=== PATIENT | male | born 1960 | race African-American/Black ===

== ENCOUNTER 2017-09-24 09:16 | Emergency (ER) | payer OTHER ==
[2017-09-24] MEDS: IBUPROFEN 600 MG TAB PO (10:34)
== END 2017-09-24 12:07 | disposition home or self-care (01) ==
LOC: FTE 09:16
DX: S92.355A Nondisplaced fracture of fifth metatarsal bone, left foot, initial encounter for closed fracture (principal); J44.9 Chronic obstructive pulmonary disease, unspecified; X58.XXXA Exposure to other specified factors, initial encounter; Y92.9 Unspecified place or not applicable
CPT/HCPCS: 29515; 73630-LT; 99283-25

== ENCOUNTER 2018-05-02 21:21 | Inpatient (IN) | payer BC, OTHER ==
[2018-05-02 21:59] LABS: ADD MAN DIFF? NO
[2018-05-02 22:00] LABS: WHITE BLOOD COUNT 5.4 10^3/ul (4.8-10.8)
[2018-05-02 22:00] LABS: BASOPHIL # 0.1 10^3/ul (0.0-0.1); BASOPHILS % 1.3 % (0.0-2.0); EOSINOPHILS # 0.1 10^3/ul (0.0-0.5); EOSINOPHILS % 2.4 % (0.0-7.0); HEMATOCRIT 59.6 % (42.0-52.0); HEMOGLOBIN 18.6 g/dl (14.0-18.0); LYMPHOCYTES # 1.9 10^3/ul (0.8-2.9); LYMPHOCYTES % 35.4 % (15.0-51.0); MEAN CORPUSCULAR HEMOGLOBIN 31.2 pg (29.0-33.0); MEAN CORPUSCULAR HGB CONC 31.2 g/dl (32.0-37.0); MEAN CORPUSCULAR VOLUME 99.8 fl (82.0-101.0); MEAN PLATELET VOLUME 10.6 fl (7.4-10.4); MONOCYTE # 0.7 10^3/ul (0.3-0.9); MONOCYTES % 13.4 % (0.0-11.0); NEUTROPHIL # 2.5 10^3/ul (1.6-7.5); NEUTROPHILS % 47.1 % (39.0-77.0); NUCLEATED RED BLOOD CELLS% 0.4 /100WBC (0.0-0.0); PLATELET COUNT 156 10^3/UL (140-415); RED BLOOD COUNT 5.97 10^6/ul (4.70-6.10); RED CELL DISTRIBUTION WIDTH 14.9 % (11.5-14.5)
[2018-05-02] MEDS: SOD CHLORIDE 0.9% 500 ML IV (22:15)
[2018-05-02] MEDS: METHYLPREDNISOLONE 125 MG INJ IV (22:15)
[2018-05-02 22:16] LABS: ALANINE AMINOTRANSFERASE 53 IU/L (13-69); ALBUMIN 2.9 g/dl (3.3-4.9); ALBUMIN/GLOBULIN RATIO 0.96; ALKALINE PHOSPHATASE 52 IU/L (42-121); ANION GAP 8 (8-16); ASPARTATE AMINO TRANSFERASE 37 IU/L (15-46); BILIRUBIN,INDIRECT 0.8 mg/dl (0-1.1); BILIRUBIN,TOTAL 0.8 mg/dl (0.2-1.3); BLOOD UREA NITROGEN 18 mg/dl (7-20); CALCIUM 8.8 mg/dl (8.4-10.2); CARBON DIOXIDE 39 mmol/L (21-31); CHLORIDE 99 mmol/L (97-110); CREATININE 1.08 mg/dl (0.61-1.24); GLUCOSE 138 mg/dl (70-220); SODIUM 142 mmol/L (135-144); TOTAL PROTEIN 5.9 g/dl (6.1-8.1)
[2018-05-02 22:18] LABS: AADO2 Arterial 39.1 mmHg (7.0-24.0); Allen Test ACCEPTAB; Arterial Base Excess 6.8 mmol/L (-3.0-3); Arterial Blood Gas Oxygen Sat 90.5 mmHG (95.0-98.0); Arterial COHb 9.4 % (0.0-3.0); Arterial Fraction of Oxyhgb 81.7 % (93.0-99.0); Arterial HCO3 39.9 mmol/L (22.0-26.0); Arterial MetHb 0.3 % (0.0-1.5); Arterial Total Hemglobin 19.7 g/dl (12.0-18.0); Arterial pCO2 95.2 mmhg (35-45); MODE NASAL CANNULA; Site Right Radial
[2018-05-02 22:26] LABS: TROPONIN-I 0.023 ng/ml (0.000-0.120)
[2018-05-02] MEDS: ALBUTEROL 0.5% (NEB) 2.5 MG/0.5 ML AMP INH (22:43)
[2018-05-02] MEDS: IPRATROPIUM (NEB) 0.5 MG/2.5 ML AMP INH (22:44)
[2018-05-02] MEDS: FUROSEMIDE 40 MG INJ IV (22:51)
[2018-05-02] MEDS: ENALAPRILAT 1.25 MG INJ IV (23:16)
[2018-05-03 00:04] LABS: B-TYPE NATRIURETIC PEPTIDE 208 PG/ML (0-125)
[2018-05-03 03:00] LABS: AADO2 Arterial 105.4 mmHg (7.0-24.0); Allen Test ACCEPTAB; Arterial Base Excess 6.7 mmol/L (-3.0-3); Arterial Blood Gas Oxygen Sat 96.6 mmHG (95.0-98.0); Arterial COHb 7.5 % (0.0-3.0); Arterial Fraction of Oxyhgb 88.9 % (93.0-99.0); Arterial HCO3 44.7 mmol/L (22.0-26.0); Arterial MetHb 0.5 % (0.0-1.5); Arterial Total Hemglobin 21.4 g/dl (12.0-18.0); Arterial pCO2 137.9 mmhg (35-45); Blood Gas PS 15; MODE MASK - BIPAP; Site Right Radial
[2018-05-03] MEDS ORDERED: PROPOFOL 100 ML (03:33)
[2018-05-03] MEDS ORDERED: IPRATROPIUM (HFA) 12.9 GM INHALER INH (04:00)
[2018-05-03] MEDS ORDERED: ALBUTEROL HFA 8 GM INHALER INH (04:00)
[2018-05-03] MEDS ORDERED: PROPOFOL 100 ML IV ×2 (04:00)
[2018-05-03] MEDS ORDERED: MIDAZOLAM (DRIP) 50 mg/50 mL 50 ML IV ×2 (04:00→04:08)
[2018-05-03] MEDS ORDERED: ACETAMINOPHEN 650MG/20.3ML CUP PO (04:00)
[2018-05-03] MEDS ORDERED: FENTAnyl (DRIP) 1000 mcg/100mL 100 ML IV (04:00)
[2018-05-03] MEDS ORDERED: ONDANSETRON 4 MG INJ IV (04:00)
[2018-05-03] MEDS: PROPOFOL 100 ML IV ×3 (04:19→08:22)
[2018-05-03] MEDS: MIDAZOLAM (DRIP) 50 mg/50 mL 50 ML IV ×3 (04:24→19:47)
[2018-05-03] MEDS: FENTAnyl (DRIP) 1000 mcg/100mL 100 ML IV ×2 (04:24→23:26)
[2018-05-03 05:23] LABS: ADD MAN DIFF? NO
[2018-05-03] MEDS: FUROSEMIDE 20 MG INJ IV ×2 (05:26→17:55)
[2018-05-03 05:27] LABS: WHITE BLOOD COUNT 4.5 10^3/ul (4.8-10.8)
[2018-05-03 05:27] LABS: ABNORMAL IP MESSAGE 1; BASOPHILS % 0.9 % (0.0-2.0); HEMATOCRIT 61.7 % (42.0-52.0); HEMOGLOBIN 18.9 g/dl (14.0-18.0); LYMPHOCYTES # 0.3 10^3/ul (0.8-2.9); LYMPHOCYTES % 7.5 % (15.0-51.0); MEAN CORPUSCULAR HEMOGLOBIN 30.9 pg (29.0-33.0); MEAN CORPUSCULAR HGB CONC 30.6 g/dl (32.0-37.0); MEAN PLATELET VOLUME 10.6 fl (7.4-10.4); MONOCYTES % 0.9 % (0.0-11.0); NEUTROPHIL # 4.1 10^3/ul (1.6-7.5); NEUTROPHILS % 90.5 % (39.0-77.0); NUCLEATED RED BLOOD CELLS% 0.4 /100WBC (0.0-0.0); PLATELET COUNT 145 10^3/UL (140-415); POSITIVE DIFF @See below; RED BLOOD COUNT 6.11 10^6/ul (4.70-6.10)
[2018-05-03 05:45] LABS: AADO2 Arterial 311.3 mmHg (7.0-24.0); Arterial Base Excess 8.9 mmol/L (-3.0-3); Arterial Blood Gas Oxygen Sat 94.7 mmHG (95.0-98.0); Arterial COHb 5.4 % (0.0-3.0); Arterial Fraction of Oxyhgb 89.3 % (93.0-99.0); Arterial HCO3 34.2 mmol/L (22.0-26.0); Arterial MetHb 0.3 % (0.0-1.5); Arterial Total Hemglobin 20.6 g/dl (12.0-18.0); Arterial pCO2 46.5 mmhg (35-45); MODE VENT - AC; Site Right Brachial
[2018-05-03 05:47] LABS: HEMOGLOBIN A1C 6.3 % (0-5.9)
[2018-05-03 05:53] LABS: ALANINE AMINOTRANSFERASE 46 IU/L (13-69); ALBUMIN 3.5 g/dl (3.3-4.9); ALBUMIN/GLOBULIN RATIO 1.16; ALKALINE PHOSPHATASE 48 IU/L (42-121); ASPARTATE AMINO TRANSFERASE 40 IU/L (15-46); BILIRUBIN,INDIRECT 0.9 mg/dl (0-1.1); BILIRUBIN,TOTAL 0.9 mg/dl (0.2-1.3); BLOOD UREA NITROGEN 18 mg/dl (7-20); CHLORIDE 99 mmol/L (97-110); CREATININE 1.13 mg/dl (0.61-1.24); GLUCOSE 157 mg/dl (70-220); POTASSIUM 5.5 mmol/L (3.5-5.1); SODIUM 143 mmol/L (135-144); TOTAL PROTEIN 6.5 g/dl (6.1-8.1)
[2018-05-03 05:59] LABS: ANION GAP 11 (8-16)
[2018-05-03 06:06] LABS: CARBON DIOXIDE 39 mmol/L (21-31)
[2018-05-03] MEDS ORDERED: SUCCINYLCHOLINE CHLORIDE 100 MG/5 ML SYG IV (07:00)
[2018-05-03] MEDS ORDERED: ETOMIDATE 20 MG INJ (07:00)
[2018-05-03] MEDS: LEVOFLOXACIN 500MG/D5W (PMX) 100 ML IVPB (08:22)
[2018-05-03 08:24] LABS: ANISOCYTOSIS 1+ (0-0); BAND NEUTROPHILS % (M) 23 % (0-4); ERYTHROBLAST% (NRBC) (M) 1 % (0-0); GIANT THROMBO% (M) 1 % (0-0); LYMPHOCYTES % (M) 2 % (15-51); MONOCYTES % (M) 1 % (0-11); PLATELET ESTIMATE NORMAL; POIKILOCYTOSIS 1+ (0-0); POLYCHROMASIA 2+ (0-0); REACTIVE LYMPHOCYTES% (M) 2 % (0-0); SEG NEUT #M 3.3 10^3/ul (1.6-7.5); SEGMENTED NEUTROPHILS (M) % 72 % (39-77); SMUDGE%M 11 % (0-0); SPHEROCYTES 2+ (0-0)
[2018-05-03] MEDS: METHYLPREDNISOLONE 125 MG INJ IV (08:25)
[2018-05-03] MEDS: ENOXAPARIN 40 MG/0.4 ML SYG SC (08:25)
[2018-05-03] MEDS: FAMOTIDINE 20 MG INJ IV ×2 (08:26→21:02)
[2018-05-03 08:48] LABS: CREATINE KINASE 72 IU/L (23-200)
[2018-05-03 09:07] LABS: CK INDEX 1.8; CK-MB 1.33 ng/ml (0.0-2.4); TROPONIN-I 0.013 ng/ml (0.000-0.120)
[2018-05-03] MEDS: FUROSEMIDE 40 MG INJ IV (10:10)
[2018-05-03 14:27] LABS: CREATINE KINASE 60 IU/L (23-200)
[2018-05-03 14:37] LABS: CK INDEX 1.4
[2018-05-03 14:46] LABS: CK-MB 0.84 ng/ml (0.0-2.4); TROPONIN-I < 0.012 ng/ml (0.000-0.120)
[2018-05-03] MEDS ORDERED: GLUCOSE GEL 15 GRAM TUBE PO ×2 (15:30)
[2018-05-03] MEDS ORDERED: GLUCOSE GEL 15 GRAM TUBE BUCCAL (15:30)
[2018-05-03] MEDS ORDERED: DEXTROSE 50% 50 ML SYRINGE IV ×2 (15:30)
[2018-05-03] MEDS ORDERED: GLUCAGON 1 MG INJ IM (15:30)
[2018-05-03] MEDS: INSULIN ASPART [NOVOLOG] 3 ML PEN SC ×2 (17:00→21:00)
[2018-05-03 19:36] LABS: ANION GAP 11 (8-16); BLOOD UREA NITROGEN 20 mg/dl (7-20); CALCIUM 8.6 mg/dl (8.4-10.2); CARBON DIOXIDE 31 mmol/L (21-31); CHLORIDE 100 mmol/L (97-110); CREATININE 0.85 mg/dl (0.61-1.24); GLUCOSE 137 mg/dl (70-220); POTASSIUM 4.1 mmol/L (3.5-5.1); SODIUM 138 mmol/L (135-144)
[2018-05-04 00:08] LABS: ADD UMIC YES; UR ASCORBIC ACID NEGATIVE (NEGATIVE); UR BACTERIA FEW /HPF (NONE SEEN); UR BILIRUBIN (Dip) NEGATIVE (NEGATIVE); UR BLOOD (Dip) 1+ mg/dL (NEGATIVE); UR CLARITY TURBID (CLEAR); UR COLOR YELLOW (YELLOW); UR GLUCOSE (Dip) NEGATIVE (NEGATIVE); UR KETONES (Dip) NEGATIVE (NEGATIVE); UR LEUKOCYTE ESTERASE (Dip) NEGATIVE Leu/ul (NEGATIVE); UR MUCUS FEW /HPF (NONE SEEN); UR NITRITE (Dip) NEGATIVE (NEGATIVE); UR RBC 25 /HPF (0-5); UR SPECIFIC GRAVITY (Dip) 1.021 (1.003-1.030); UR TOTAL PROTEIN (Dip) NEGATIVE (NEGATIVE); UR UROBILINOGEN (Dip) 1+ mg/dL (NEGATIVE); UR WBC 53 /HPF (0-5)
[2018-05-04] MEDS: INSULIN ASPART [NOVOLOG] 3 ML PEN SC ×5 (01:00→18:00)
[2018-05-04] MEDS ORDERED: ACCU-CHEK XX (02:00)
[2018-05-04 05:16] LABS: ADD MAN DIFF? NO
[2018-05-04 05:21] LABS: BASOPHILS % 0.1 % (0.0-2.0); EOSINOPHILS % 0.3 % (0.0-7.0); HEMATOCRIT 60.4 % (42.0-52.0); HEMOGLOBIN 19.5 g/dl (14.0-18.0); LYMPHOCYTES # 1.8 10^3/ul (0.8-2.9); LYMPHOCYTES % 22.4 % (15.0-51.0); MEAN CORPUSCULAR HEMOGLOBIN 30.5 pg (29.0-33.0); MEAN CORPUSCULAR HGB CONC 32.3 g/dl (32.0-37.0); MEAN CORPUSCULAR VOLUME 94.5 fl (82.0-101.0); MEAN PLATELET VOLUME 10.6 fl (7.4-10.4); MONOCYTE # 0.8 10^3/ul (0.3-0.9); MONOCYTES % 10.5 % (0.0-11.0); NEUTROPHIL # 5.3 10^3/ul (1.6-7.5); NEUTROPHILS % 66.4 % (39.0-77.0); PLATELET COUNT 131 10^3/UL (140-415); RED BLOOD COUNT 6.39 10^6/ul (4.70-6.10)
[2018-05-04] MEDS: FUROSEMIDE 20 MG INJ IV ×2 (05:45→18:45)
[2018-05-04] MEDS: MIDAZOLAM (DRIP) 50 mg/50 mL 50 ML IV (05:45)
[2018-05-04 06:00] LABS: ANION GAP 10 (8-16); BLOOD UREA NITROGEN 22 mg/dl (7-20); CALCIUM 8.7 mg/dl (8.4-10.2); CARBON DIOXIDE 35 mmol/L (21-31); CHLORIDE 100 mmol/L (97-110); CREATININE 0.91 mg/dl (0.61-1.24); GLUCOSE 131 mg/dl (70-220); MAGNESIUM 2.2 mg/dl (1.7-2.5); PHOSPHORUS 2.9 mg/dl (2.5-4.9); POTASSIUM 3.2 mmol/L (3.5-5.1); SODIUM 142 mmol/L (135-144)
[2018-05-04] MEDS: FAMOTIDINE 20 MG INJ IV ×2 (08:45→20:52)
[2018-05-04] MEDS: LEVOFLOXACIN 500MG/D5W (PMX) 100 ML IVPB (08:45)
[2018-05-04] MEDS: METHYLPREDNISOLONE 125 MG INJ IV (08:45)
[2018-05-04] MEDS: ENOXAPARIN 40 MG/0.4 ML SYG SC (08:48)
[2018-05-04 10:24] LABS: Arterial Blood Gas Oxygen Sat 96.5 mmHG (95.0-98.0); Arterial COHb 0.2 % (0.0-3.0); Arterial Fraction of Oxyhgb 95.8 % (93.0-99.0); Arterial HCO3 35.4 mmol/L (22.0-26.0); Arterial MetHb 0.5 % (0.0-1.5); Arterial Total Hemglobin 21.6 g/dl (12.0-18.0); Arterial pCO2 60.2 mmhg (35-45); Blood Gas PS 10; MODE VENT - CPAP; Site Right Brachial
[2018-05-04] MEDS: POTASSIUM CHLORIDE 50 ML IVPB ×3 (11:38→14:45)
[2018-05-04 13:44] LABS: AADO2 Arterial 78.6 mmHg (7.0-24.0); Arterial Base Excess 7.1 mmol/L (-3.0-3); Arterial Blood Gas Oxygen Sat 93.5 mmHG (95.0-98.0); Arterial COHb 0.4 % (0.0-3.0); Arterial Fraction of Oxyhgb 92.7 % (93.0-99.0); Arterial HCO3 34.9 mmol/L (22.0-26.0); Arterial MetHb 0.5 % (0.0-1.5); Arterial Total Hemglobin 22.1 g/dl (12.0-18.0); Arterial pCO2 56.8 mmhg (35-45); Blood Gas PS 10; MODE VENT - CPAP; Site Right Brachial
[2018-05-04] MEDS: PROPOFOL 100 ML IV (16:00)
[2018-05-05] MEDS: ACCU-CHEK XX (01:43)
[2018-05-05] MEDS: PROPOFOL 100 ML IV (04:00)
[2018-05-05] MEDS: FUROSEMIDE 20 MG INJ IV ×2 (05:15→18:13)
[2018-05-05 05:54] LABS: ADD MAN DIFF? NO
[2018-05-05 06:07] LABS: BASOPHILS % 0.3 % (0.0-2.0); EOSINOPHILS % 0.1 % (0.0-7.0); HEMATOCRIT 65.5 % (42.0-52.0); HEMOGLOBIN 20.3 g/dl (14.0-18.0); LYMPHOCYTES # 1.9 10^3/ul (0.8-2.9); LYMPHOCYTES % 24.5 % (15.0-51.0); MEAN CORPUSCULAR HEMOGLOBIN 30.7 pg (29.0-33.0); MEAN CORPUSCULAR VOLUME 98.9 fl (82.0-101.0); MEAN PLATELET VOLUME 10.7 fl (7.4-10.4); MONOCYTE # 0.9 10^3/ul (0.3-0.9); MONOCYTES % 11.5 % (0.0-11.0); NEUTROPHIL # 4.8 10^3/ul (1.6-7.5); NEUTROPHILS % 63.3 % (39.0-77.0); PLATELET COUNT 137 10^3/UL (140-415); RED BLOOD COUNT 6.62 10^6/ul (4.70-6.10)
[2018-05-05 06:07] LABS: WHITE BLOOD COUNT 7.6 10^3/ul (4.8-10.8)
[2018-05-05 06:44] LABS: BLOOD UREA NITROGEN 22 mg/dl (7-20); CALCIUM 9.1 mg/dl (8.4-10.2); CHLORIDE 98 mmol/L (97-110); CREATININE 1.05 mg/dl (0.61-1.24); GLUCOSE 99 mg/dl (70-220); MAGNESIUM 2.2 mg/dl (1.7-2.5); POTASSIUM 3.8 mmol/L (3.5-5.1); SODIUM 144 mmol/L (135-144)
[2018-05-05 06:50] LABS: ANION GAP 10 (8-16)
[2018-05-05 07:06] LABS: CARBON DIOXIDE 40 mmol/L (21-31)
[2018-05-05] MEDS: INSULIN ASPART [NOVOLOG] 3 ML PEN SC ×4 (08:00→21:00)
[2018-05-05] MEDS: METHYLPREDNISOLONE 125 MG INJ IV (09:16)
[2018-05-05] MEDS: ENOXAPARIN 40 MG/0.4 ML SYG SC (09:17)
[2018-05-05] MEDS: LEVOFLOXACIN 500MG/D5W (PMX) 100 ML IVPB (09:17)
[2018-05-05] MEDS: FAMOTIDINE 20 MG INJ IV (09:17)
[2018-05-05] MEDS: NICOTINE (14 MG/24 HR) PATCH TRANSDERM (15:41)
[2018-05-05] MEDS: FAMOTIDINE 20 MG TAB PO (21:29)
[2018-05-06] MEDS: ACCU-CHEK XX (01:42)
[2018-05-06] MEDS: hydrALAzine 20 MG INJ IV (02:49)
[2018-05-06] MEDS: FUROSEMIDE 20 MG INJ IV ×2 (05:27→17:20)
[2018-05-06] MEDS: LEVOFLOXACIN 500 MG TAB PO (05:29)
[2018-05-06 05:39] LABS: ADD MAN DIFF? NO
[2018-05-06 05:50] LABS: BASOPHILS % 0.3 % (0.0-2.0); EOSINOPHILS % 0.3 % (0.0-7.0); HEMATOCRIT 61.7 % (42.0-52.0); HEMOGLOBIN 19.8 g/dl (14.0-18.0); LYMPHOCYTES # 2.1 10^3/ul (0.8-2.9); MEAN CORPUSCULAR HEMOGLOBIN 30.8 pg (29.0-33.0); MEAN CORPUSCULAR HGB CONC 32.1 g/dl (32.0-37.0); MEAN CORPUSCULAR VOLUME 96.1 fl (82.0-101.0); MEAN PLATELET VOLUME 10.7 fl (7.4-10.4); MONOCYTE # 1.3 10^3/ul (0.3-0.9); MONOCYTES % 14.7 % (0.0-11.0); NEUTROPHIL # 5.3 10^3/ul (1.6-7.5); NEUTROPHILS % 60.4 % (39.0-77.0); PLATELET COUNT 132 10^3/UL (140-415); POSITIVE DIFF @See below; RED BLOOD COUNT 6.42 10^6/ul (4.70-6.10); RED CELL DISTRIBUTION WIDTH 15.6 % (11.5-14.5)
[2018-05-06 05:50] LABS: WHITE BLOOD COUNT 8.7 10^3/ul (4.8-10.8)
[2018-05-06 06:08] LABS: ANION GAP 9 (8-16); BLOOD UREA NITROGEN 20 mg/dl (7-20); CALCIUM 8.8 mg/dl (8.4-10.2); CARBON DIOXIDE 37 mmol/L (21-31); CHLORIDE 97 mmol/L (97-110); GLUCOSE 108 mg/dl (70-220); POTASSIUM 3.6 mmol/L (3.5-5.1); SODIUM 139 mmol/L (135-144)
[2018-05-06] MEDS: INSULIN ASPART [NOVOLOG] 3 ML PEN SC ×4 (07:50→20:19)
[2018-05-06] MEDS: METHYLPREDNISOLONE 125 MG INJ IV (08:37)
[2018-05-06] MEDS: FAMOTIDINE 20 MG TAB PO ×2 (08:37→20:19)
[2018-05-06] MEDS: NICOTINE (14 MG/24 HR) PATCH TRANSDERM (08:38)
[2018-05-06] MEDS: ENOXAPARIN 40 MG/0.4 ML SYG SC (08:48)
[2018-05-06] MEDS: ALBUTEROL/IPRATROPIUM (NEB) 3 ML AMP HHN ×2 (14:43→19:47)
[2018-05-06] MEDS: LORAZEPAM 2 MG INJ IV (21:31)
[2018-05-07] MEDS: ACCU-CHEK XX (02:00)
[2018-05-07] MEDS: LEVOFLOXACIN 500 MG TAB PO (05:46)
[2018-05-07] MEDS: FUROSEMIDE 20 MG INJ IV ×2 (05:47→18:00)
[2018-05-07 06:13] LABS: ADD MAN DIFF? NO
[2018-05-07 06:23] LABS: BASOPHILS % 0.2 % (0.0-2.0); EOSINOPHILS % 0.2 % (0.0-7.0); HEMATOCRIT 65.4 % (42.0-52.0); HEMOGLOBIN 20.7 g/dl (14.0-18.0); LYMPHOCYTES # 1.9 10^3/ul (0.8-2.9); LYMPHOCYTES % 21.2 % (15.0-51.0); MEAN CORPUSCULAR HEMOGLOBIN 30.8 pg (29.0-33.0); MEAN CORPUSCULAR HGB CONC 31.7 g/dl (32.0-37.0); MEAN CORPUSCULAR VOLUME 97.5 fl (82.0-101.0); MEAN PLATELET VOLUME 10.8 fl (7.4-10.4); MONOCYTE # 1.3 10^3/ul (0.3-0.9); MONOCYTES % 13.8 % (0.0-11.0); NEUTROPHIL # 5.8 10^3/ul (1.6-7.5); NEUTROPHILS % 64.2 % (39.0-77.0); PLATELET COUNT 133 10^3/UL (140-415); RED BLOOD COUNT 6.71 10^6/ul (4.70-6.10)
[2018-05-07 06:37] LABS: ANION GAP 10 (8-16); BLOOD UREA NITROGEN 20 mg/dl (7-20); CALCIUM 8.9 mg/dl (8.4-10.2); CARBON DIOXIDE 38 mmol/L (21-31); CHLORIDE 96 mmol/L (97-110); CREATININE 0.81 mg/dl (0.61-1.24); GLUCOSE 100 mg/dl (70-220); POTASSIUM 3.8 mmol/L (3.5-5.1); SODIUM 140 mmol/L (135-144)
[2018-05-07] MEDS: INSULIN ASPART [NOVOLOG] 3 ML PEN SC ×3 (07:52→17:13)
[2018-05-07] MEDS: FAMOTIDINE 20 MG TAB PO (08:22)
[2018-05-07] MEDS: NICOTINE (14 MG/24 HR) PATCH TRANSDERM (08:22)
[2018-05-07] MEDS: METHYLPREDNISOLONE 125 MG INJ IV (08:22)
[2018-05-07] MEDS: ENOXAPARIN 40 MG/0.4 ML SYG SC (08:27)
[2018-05-07] MEDS: ALBUTEROL/IPRATROPIUM (NEB) 3 ML AMP HHN ×2 (08:46→14:02)
[2018-05-08] MEDS ORDERED: predniSONE 10 MG TAB PO (09:00)
== END 2018-05-07 18:25 | disposition home or self-care (01) | DRG 208 ==
LOC: TEL 22:49 → 6WM 05-06 01:42 → E/R 21:21 → ICU 05-03 03:21
PROC: 5A1945Z Respiratory Ventilation, 24-96 Consecutive Hours (ICD-10-PCS; principal; 2018-05-04)
PROC: 0BH17EZ Insertion of Endotracheal Airway into Trachea, Via Natural or Artificial Opening (ICD-10-PCS; 2018-05-04)
DX: J44.1 Chronic obstructive pulmonary disease with (acute) exacerbation (principal); I50.23 Acute on chronic systolic (congestive) heart failure; J96.22 Acute and chronic respiratory failure with hypercapnia; J96.21 Acute and chronic respiratory failure with hypoxia; N39.0 Urinary tract infection, site not specified; N17.9 Acute kidney failure, unspecified; I13.0 Hypertensive heart and chronic kidney disease with heart failure and stage 1 through stage 4 chronic kidney disease, or unspecified chronic kidney disease; E66.01 Morbid (severe) obesity due to excess calories; E86.0 Dehydration; R73.03 Prediabetes; E87.6 Hypokalemia; N18.9 Chronic kidney disease, unspecified; G47.33 Obstructive sleep apnea (adult) (pediatric); Z68.37 Body mass index [BMI] 37.0-37.9, adult
CPT/HCPCS: 31500; 36600; 71045; 80048; 80053; 81001; 82550; 82553; 82803; 82962; 83036; 83735; 83880; 84100; 84484; 85025; 87086; 87400; 93005; 93306; 94002; 94003; 94640; 94644; 94660; 94664; 94770; 96361; 96374; 97161; 99291-25